=== PATIENT | female | born 1995 | race Hispanic/Latino ===

== ENCOUNTER → 2022-10-02 | Outpatient (CLI) | payer MEDICAID, SELFPAY ==
[2022-10-07 20:43] LABS: HPV Reflexed? NOT INDICATED
== END | disposition home or self-care (01) ==
LOC: LABSPEC 13:53
PROVIDERS: Visit Provider Student in an Organized Health Care Education/Training Program
DX: Z12.4 Encounter for screening for malignant neoplasm of cervix (principal)
CPT/HCPCS: 88175; G0145

== ENCOUNTER → 2022-10-09 | Outpatient (CLI) | payer MEDICAID, SELFPAY ==
[2022-10-09 16:29] LABS: Progesterone Level 18.08 ng/mL (See Comment)
[2022-10-09 16:33] LABS: Hemoglobin A1c 5.1 % (3.8-5.6)
[2022-10-09 16:34] LABS: Estradiol 118.4 pg/mL; Follicle Stimulating Hormone 2.5 mIU/mL; Luteinizing Hormone 2.4 mIU/mL; Prolactin 5.5 ng/mL; T4 Free Direct 0.82 ng/dL (0.76-1.46); Thyroid Stim Hormone (TSH) 0.35 uIU/mL (0.358-3.74)
== END | disposition home or self-care (01) ==
LOC: WOBLAB 14:47
PROVIDERS: Visit Provider Student in an Organized Health Care Education/Training Program
DX: N97.9 Female infertility, unspecified (principal)
CPT/HCPCS: 36415; 82670; 83001; 83002; 83036; 84144; 84146; 84439; 84443